=== PATIENT | female | born 1960 | race Caucasian/White ===

== ENCOUNTER 2018-11-17 19:51 | Emergency (ER) | payer SELFPAY ==
[2018-11-17] MEDS ORDERED: predniSONE 20 MG TAB ONE (20:55)
[2018-11-17] MEDS ORDERED: HYDROcodone/Acetaminophen 5/325 mg Tablet ONE (20:55)
== END 2018-11-17 21:09 | disposition home or self-care (01) ==
LOC: MADERS 19:51
DX: M54.42 Lumbago with sciatica, left side (principal); Z87.891 Personal history of nicotine dependence
CPT/HCPCS: 99283; J7512